=== PATIENT | female | born 1980 | race Caucasian/White ===

== ENCOUNTER 2024-05-07 17:41 | Emergency (ER) | payer OTHER ==
[2024-05-07] MEDS ORDERED: HYDROcodone/Acetaminophen 10/325 mg Tablet ONE (17:58)
[2024-05-07] MEDS ORDERED: Lidocaine 1% (PF) 30 ML VIAL ONE (18:27)
[2024-05-07] MEDS ORDERED: Bacitracin 1 PK ONE (19:03)
== END 2024-05-07 19:48 | disposition home or self-care (01) ==
LOC: NAV ERS 17:41
DX: S67.191A Crushing injury of left index finger, initial encounter (principal); S39.012A Strain of muscle, fascia and tendon of lower back, initial encounter; S61.211A Laceration without foreign body of left index finger without damage to nail, initial encounter; W23.0XXA Caught, crushed, jammed, or pinched between moving objects, initial encounter; Y93.89 Activity, other specified
CPT/HCPCS: 12002; 99283